=== PATIENT | male | born 1965 | race Caucasian/White ===

== ENCOUNTER 2020-04-28 13:10 | Outpatient (CLI) | payer MEDICAID, SELFPAY ==
--- NOTE | 2020-04-28 13:22 | XR_ITS ---
WS: [id number] LATERAL LUMBAR SPINE: 3 view. Lateral radiographs are performed in upright neutral, flexion and extension to the patient's toleranc e. HISTORY: Spinal stenosis. COMPARISON: 06/11/2018 Posterior lumbar alignment is normal. With flexion and extension no instability. Small osteophyte ext ends posteriorly from the inferior L5 vertebral body. Moderate disc space narrowing at L5-S1. No frac tures. XR/XR lumbar spine f/e only [id number] IMPRESSION: No lumbar spine instability. Moderate degenerative disc disease at L5-S1.
--- NOTE | 2020-04-28 13:23 | MR_ITS ---
WS: [id number] MRI LUMBAR SPINE NONCONTRAST HISTORY: SPINAL STENOSIS LUMBAR REGION WITH NEUROGENIC CLAUDICATION COMPARISON: 06/11/2018 TECHNIQUE: Sagittal and axial multisequence imaging is submitted. Increase in the cervical lordosis. Disc and osteophytes causing mild encroachment upon the cervical c ord at C5-6. There are small disc protrusions throughout the thoracic spine with no high-grade stenos is appreciated. Straightening of the normal lumbar lordosis. No acute fracture. Benign hemangioma at L4. Moderate disc space narrowing and desiccation at L4-5 and L5-S1. Conus terminates normally at L1-2 disc level. L1-L2: Central disc osteophyte encroaches upon the ventral thecal sac without causing significant jimmy nosis. Very mild bilateral foraminal narrowing. L2-L3: Mild osteophytic ridging and facet arthritis. Small annular fissure and extraforaminal disc on the LEFT is similar to the prior study. L3-L4: Mild annular disc bulging facet arthritis. Annular fissure in the LEFT foramen. No significant stenosis. L4-L5: Mild annular disc bulging with a shallow central disc protrusion. Mild facet and ligamentum fl avum hypertrophy. Broad-based disc bulging encroaches into the lateral recesses and subarticular fora men. Mild central stenosis with mild bilateral lateral recess and subarticular foraminal stenosis. Mi ld progression of disease since the prior study. L5-S1: Diffuse osteophytic ridging and annular disc bulging. Bilateral facet joint arthritis. Size of the broad-based disc bulging has actually improved since 2019. There is slightly less contact on the LEFT S1 nerve root. There is continued bilateral foraminal stenosis, LEFT is moderate and RIGHT is m ild. MR/MR lumbar spine wo con* [id number] IMPRESSION: 1. Moderate LEFT and mild RIGHT foraminal stenosis at L5-S1 due to disc osteop hyte disease. Broad-based disc protrusion abutting the LEFT S1 nerve root has i mproved since 2019. 2. Mild central with mild bilateral recess and subarticular foraminal stenosis at L4-5 with minimal progression since the prior study. Slightly greater encro achment upon the L5 nerve roots. 3. No fractures.
== END 2020-04-28 13:11 | disposition home or self-care (01) ==
PROVIDERS: PCP Nurse Practitioner Family; Visit Provider Anesthesiology Pain Medicine
DX: M48.062 Spinal stenosis, lumbar region with neurogenic claudication (principal); M48.07 Spinal stenosis, lumbosacral region
CPT/HCPCS: 72120; 72148

== ENCOUNTER 2021-03-07 12:32 | Emergency (ER) | payer MEDICAID, SELFPAY ==
[2021-03-07 13:31] VITALS: BP 185/99; PULSE 99; RESP 18; TEMP 37; O2SAT 96; BMI 38.3
--- NOTE | 2021-03-07 14:09 | XR_ITS ---
WS: [id number] Exam: XR chest 1V portable [id number] Date/Time of Exam: 03/07/2021 2:22 PM Reason For Exam: CP Comparison 05/24/2013. The lungs are clear and fully expanded. Normal cardiomediastinal silhouette. Chronic elevation of the right diaphragm. Regional bony structures are intact. XR/XR chest 1V portable [id number] IMPRESSION: 1. No acute cardiopulmonary finding.
--- NOTE | 2021-03-07 14:09 | ECG_ITS ---
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 Measurements Intervals Decker Rate: 95 P: 67 MI: 181 QRS: -47 QRSD: 134 T: 57 QT: 358 QTc: 452 Interpretive Statements SINUS RHYTHM RIGHT BUNDLE BRANCH BLOCK [120+ ms QRS DURATION, UPRIGHT V1, 40+ ms S IN I/aVL/V4/V5/V6] LEFT ANTERIOR FASCICULAR BLOCK [QRS AXIS <= -45, QR IN I, RS IN II] MODERATE VOLTAGE CRITERIA FOR LVH, CONSIDER NORMAL VARIANT [MEETS CRITERIA IN ONE OF: R(aVL), S(V1), R(V5), R(V5/V6)+S(V1)] POSSIBLE SEPTAL MYOCARDIAL INFARCTION , PROBABLY OLD [30 ms Q WAVE IN V1/V2] Compared to ECG 07/19/2017 13:07:35 Right bundle-branch block now present Left anterior fascicular block now present Left-axis deviation no longer present Myocardial infarct finding still present Electronically Signed On 03-07-2021 17:49:27 ROSE GRADING SUPERVISOR by Alejandrina Marie M.D. [id number]
--- NOTE | 2021-03-07 14:17 | ED_ITS ---
HPI - Chest Pain General: Chief Complaint: Chest Pain Stated Complaint: Chest Pain History of Present Illness: HPI narrative: Patient states that she has had chest pain last couple weeks. Was seen at the clinic and evaluated had an EKG done which shows new right bundle branch and left bundle branch block. Patient states she is having chest pain again he feels pressure in his arm squeezing and burning in center of chest. Has history of hypertension does have shortness of breath with exertion. Course Vital Signs: Vital signs: Vital Signs Temperature 98.6 F 03/07/21 13:31 Pulse Rate 99 03/07/21 13:31 Respiratory Rate 18 03/07/21 13:31 Blood Pressure 185/99 03/07/21 13:31 Pulse Oximetry 96 03/07/21 13:31 MDM - Chest Pain MDM Narrative: Medical decision making narrative: Patient left LVEF. I did review patient's labs that were back at 1605. Troponin is negative. White count slightly elevated. I called his phone number that he has listed and it shows patient has a voice mailbox is not set up yet. Lab Data: Labs: Lab Results 03/07/21 03/07/21 03/07/21 15:31 15:31 15:31 WBC 13.3 10^3/uL H 10 ^3/uL (4.0-10.0) RBC 5.74 10^6/uL H 10 ^6/uL (4.1-5.3) Hgb 17.6 g/dL H g/dL (11.7-16.6) Hct 51.7 % % (42.0-52.0) MCV 90.1 fl fl (80-94) MCH 30.7 pg pg (28.0-34.0) MCHC 34.0 g/dL g/dL (30.0-36.0) RDW 11.6 % L % (12.1-15.1) Plt Count 344 10^3/cmm 10^3 /cmm (130-400) MPV 10.2 fL fL (7.4-10.4) Neut % (Auto) 77.1 % % Lymph % (Auto) 15.0 % % Col[place] % (Auto) 6.7 % % Eos % (Auto) 0.2 % % Baso % (Auto) 0.5 % % Neut # (Auto) 10.25 10^3/uL H 1 0^3/uL (1.8-7.7) Lymph # (Auto) 2.0 10^3/uL 10^3/ uL (0.8-4.8) Colleton # (Auto) 0.9 10^3/uL 10^3/ uL (0.2-0.9) Eos # (Auto) 0.0 10^3/uL 10^3/ uL (0.0-0.8) Baso # (Auto) 0.1 10^3/uL 10^3/ uL (0.0-0.1) Nucleated RBC % (a uto) 0 % % Nucleated RBCs # 0.0 /100WBC /100W BC PT 13.40 SECONDS SEC ONDS (12.1-14.9) INR 0.99 (0.8-1.2) Sodium 137 mmol/L mmol/L (136-145) Potassium 4.3 mmol/L mmol/L (3.5-5.1) Chloride 100 mmol/L mmol/L (98-107) Carbon Dioxide 24 mmol/L mmol/L (22-29) Anion Gap 17.3 (5-19) BUN 10 mg/dL mg/dL (6-20) Creatinine 0.9 mg/dL mg/dL (0.7-1.2) GFR Calculation 88.3 mL/min L mL/ min (90-130) Glucose 117 mg/dL H mg/dL (65-115) Calculated Osmolal ity 284 mOsm/kg L mOs m/kg (285-295) Calcium 9.5 mg/dL mg/dL (8.5-10.5) Total Bilirubin 0.6 mg/dL mg/dL (0.15-1.2) AST 12 U/L U/L (0-40) ALT 17 U/L U/L (0-41) Alkaline Phosphata se 89 IU/L IU/L (40-130) Troponin T Baselin e Total Protein 7.2 g/dL g/dL (6.6-8.7) Albumin 4.8 g/dL g/dL (3.5-5.2) Globulin 2.4 g/dL g/dL (1.3-4.6) Lipase 11 U/L L U/L (13-60) 03/07/21 15:31 WBC RBC Hgb Hct MCV MCH MCHC RDW Plt Count MPV Neut % (Auto) Lymph % (Auto) Colleton % (Auto) Eos % (Auto) Baso % (Auto) Neut # (Auto) Lymph # (Auto) Colleton # (Auto) Eos # (Auto) Baso # (Auto) Nucleated RBC % (a uto) Nucleated RBCs # PT INR Sodium Potassium Chloride Carbon Dioxide Anion Gap BUN Creatinine GFR Calculation Glucose Calculated Osmolal ity Calcium Total Bilirubin AST ALT Alkaline Phosphata se Troponin T Baselin e 9 ng/L ng/L (0-15) Total Protein Albumin Globulin Lipase Coding Level of Care Code 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
[2021-03-07 15:50] LABS: Basophils # 0.1 10^3/uL (0.0-0.1); Basophils % 0.5 %; Eosinophils % 0.2 %; Hematocrit 51.7 % (42.0-52.0); Hemoglobin 17.6 g/dL (11.7-16.6); Mean Corpuscular Hemoglobin 30.7 pg (28.0-34.0); Mean Corpuscular Volume 90.1 fl (80-94); Mean Platelet Volume 10.2 fL (7.4-10.4); Monocytes # 0.9 10^3/uL (0.2-0.9); Monocytes % 6.7 %; Neutrophils # 10.25 10^3/uL (1.8-7.7); Neutrophils % 77.1 %; Nucleated Red Blood Cells % 0 %; Platelet Count 344 10^3/cmm (130-400); Red Blood Count 5.74 10^6/uL (4.1-5.3); Red Cell Distribution Width 11.6 % (12.1-15.1); White Blood Count 13.3 10^3/uL (4.0-10.0)
[2021-03-07 15:58] LABS: Troponin(5th) Baseline 9 ng/L (0-15)
[2021-03-07 15:59] LABS: Alanine Aminotransferase 17 U/L (0-41); Albumin Level 4.8 g/dL (3.5-5.2); Alkaline Phosphatase 89 IU/L (40-130); Anion Gap 17.3 (5-19); Aspartate Amino Transferase 12 U/L (0-40); Blood Urea Nitrogen 10 mg/dL (6-20); Calcium 9.5 mg/dL (8.5-10.5); Carbon Dioxide 24 mmol/L (22-29); Chloride 100 mmol/L (98-107); Globulin 2.4 g/dL (1.3-4.6); Glomerular Filtration Rate 88.3 mL/min (90-130); Glucose 117 mg/dL (65-115); Lipase 11 U/L (13-60); Osmolality Calculated 284 mOsm/kg (285-295); Potassium 4.3 mmol/L (3.5-5.1); Sodium 137 mmol/L (136-145); Total Bilirubin 0.6 mg/dL (0.15-1.2); Total Protein 7.2 g/dL (6.6-8.7)
[2021-03-07 16:03] LABS: INR 0.99 (0.8-1.2)
== END 2021-03-07 15:40 ==
PROVIDERS: Nurse Practitioner Family; Emergency Provider Family Medicine; PCP Nurse Practitioner Family
DX: R07.9 Chest pain, unspecified (principal); Z53.21 Procedure and treatment not carried out due to patient leaving prior to being seen by health care provider
CPT/HCPCS: 71045; 80053; 83690; 84484; 85025; 85610; 93005; 99282

== ENCOUNTER → 2021-05-08 11:01 | Outpatient (BNVA) | payer MEDICAID, SELFPAY | PROVIDERS: PCP Nurse Practitioner Family; Visit Provider Internal Medicine Cardiovascular Disease | DX: R00.2 Palpitations (principal); I10 Essential (primary) hypertension; I45.2 Bifascicular block; E11.9 Type 2 diabetes mellitus without complications; G62.9 Polyneuropathy, unspecified; M79.7 Fibromyalgia | CPT/HCPCS: 99214 ==

== ENCOUNTER 2021-05-30 08:03 | Outpatient (CLI) | payer MEDICAID, SELFPAY ==
[2021-05-30 08:51] VITALS: BMI 38.3
--- NOTE | 2021-05-30 08:54 | NMCV_ITS ---
NM tracie perf SPECT r/s* [id number] Sharath Reyna Age: 55 Gender: M : 1965 Exam Date: 05/30/2021 09:50 Ordering Phys: Severo Elena NP Technologist: FRANDY Link Exam Location: [facility] Indications: CHEST PAIN SHORTNESS OF BREATH STRESS TEST Please see separate stress [facility] for full findings IMAGE PROTOCOL Rest/Stress 1 Lexiscan Day Radiopharmaceutical Dose (mCi) Administration Site Administered by Rest: Tc-99m 10.2 IV FRANDY Mo Sestamibi Stress:Tc-99m 32.4 IV FRANDY Mo Sestamibi Rest: 30-May-2021 60 Discovery 630 Stress: 30-May-2021 30 Discovery 630 0.4mg Lexiscan. Images obtained in supine and prone position. SPECT RESULTS Technical Quality: Excellent Raw Data Analysis: Normal Image Corrections: No attenuation or motion correction applied Summed Stress Score: 5 Summed Rest Score: 8 Summed Difference Score: 1 PERFUSION FINDINGS There is a partially reversible perfusion defect in the inferior, apical inferior and apical lateral luke. This is consistent with prior infarct with francisco-infarct ischemia in these territories. FUNCTIONAL RESULTS (calculated via Gated SPECT) Stress Image LV EF (%): 65 Stress EDV (mL):93 TID: 0.93 Stress ESV (mL):33 FUNCTIONAL FINDINGS: There is normal left ventricular systolic function. IMPRESSIONS 1. Abnormal myocardial perfusion imaging with small to moderate sized prior infarct with francisco-infarct ischemia in inferior, apical inferior and apical lateral luke. 2. LV systolic function is normal Robinson Gotti MD (Electronically Signed) Final Date: 03 June 2021 11:40 S
--- NOTE | 2021-05-30 08:54 | ECG_ITS ---
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 Interpretive Statements NAME OF STUDY: LEXISCAN SESTAMIBI STRESS TEST INDICATION: [Atypical Chest Pain, ] Procedure: At the baseline, the blood pressure was 124/85 mmHg with a heart rate of 80 bpm. The electrocardiogram showed normal sinus rhythm,incomplete right bundle branch block, normal ST and T's. The Lexiscan was infused over a period of 20 seconds. A total of 0.4 mg of Lexiscan was infused. The stress phase was continued for a total of 5 minutes. Heart rate was at the end of stress phase was 86 bpm and a blood pressure of 110/85mmHg. The EKG at the peak infusion revealed since normal sinus rhythm with no significant ST-T wave changes. Sestamibi was injected 20 seconds after the Lexiscan infusion. Blood pressure at the end of recovery phase was 120/82 mmHg with a heart rate of 84 bpm. Conclusion: 1. Normal EKG response to Lexiscan infusion 2. No Lexiscan induced chest pain or cardiac arrhythmia. 3. Normal blood pressure and heart rate response. 4. Sestamibi/sestamibi perfusion scan pending; see separate report. Electronically Signed On 07-01-2021 21:20:34 CDT by Robinson Gotti M.D. [id number]
[2021-05-30] MEDS: regadenoson 0.4 Mg/5 ml Syringe IVP (10:50)
[2021-05-30 11:06] VITALS: BP 120/82; PULSE 85
== END 2021-05-30 08:04 | disposition home or self-care (01) ==
LOC: CDL 08:04
PROVIDERS: PCP Nurse Practitioner Family; Visit Provider Nurse Practitioner Family
DX: R07.89 Other chest pain (principal); R06.02 Shortness of breath
CPT/HCPCS: 78452; 93017; A9500; J2785

== ENCOUNTER → 2021-07-12 15:09 | Outpatient (BNVA) | payer MEDICAID, SELFPAY | PROVIDERS: PCP Nurse Practitioner Family; Visit Provider Nurse Practitioner Family | DX: R94.39 Abnormal result of other cardiovascular function study (principal) | CPT/HCPCS: 99213 ==

== ENCOUNTER → 2021-11-12 11:02 | Outpatient (BNVA) | payer MEDICAID, SELFPAY | PROVIDERS: PCP Family Medicine; Visit Provider Internal Medicine Cardiovascular Disease | DX: R07.9 Chest pain, unspecified (principal); R94.39 Abnormal result of other cardiovascular function study; I10 Essential (primary) hypertension; E11.40 Type 2 diabetes mellitus with diabetic neuropathy, unspecified; I45.2 Bifascicular block; R06.02 Shortness of breath | CPT/HCPCS: 99214 ==

== ENCOUNTER 2021-11-26 07:48 | Outpatient (CLI) | payer MEDICAID, SELFPAY ==
[2021-11-26] VITALS (17 sets, daily range): BP systolic 106–131; BP diastolic 68–94; PULSE 79–100; RESP 12–20; O2SAT 93–96; BMI 38.0
[2021-11-26 08:12] LABS: Basophils # 0.1 10^3/uL (0.0-0.1); Basophils % 0.7 %; Eosinophils # 0.4 10^3/uL (0.0-0.8); Hematocrit 49.5 % (42.0-52.0); Hemoglobin 16.5 g/dL (11.7-16.6); Lymphocytes % 23.7 %; Mean Corpuscular HGB Conc 33.3 g/dL (30.0-36.0); Mean Corpuscular Hemoglobin 31.4 pg (28.0-34.0); Mean Corpuscular Volume 94.1 fl (80-94); Monocytes # 1.2 10^3/uL (0.2-0.9); Monocytes % 9.2 %; Neutrophils # 7.81 10^3/uL (1.8-7.7); Neutrophils % 62.8 %; Nucleated Red Blood Cells % 0 %; Platelet Count 269 10^3/cmm (130-400); Red Blood Count 5.26 10^6/uL (4.1-5.3); Red Cell Distribution Width 12.2 % (12.1-15.1); White Blood Count 12.4 10^3/uL (4.0-10.0)
[2021-11-26] MEDS: diphenhydrAMINE 50 mg Capsule PO (08:20)
--- NOTE | 2021-11-26 08:30 | XACV_ITS ---
Ht: 180 cm Wt: 124 kg BSA: 2.54 m2 Gender: Male : 1965 Any Known Allergies: Other Exam Priority: Routine Procedure(s): Procedure Description: Diagnostic procedure Procedure Description: Coronary Angiography Diagnostic Cath Status: Elective Diagnostic Findings * No disease noted in the Left Main, Left Anterior Descending, Right, or Circumflex coronary arteries. * Coronary angiography shows right dominance. Conclusions 1. No disease noted in the Left Main, Left Anterior Descending, Right, or Circumflex coronary arteries. Recommendations * Continue current medical management and risk factor modification. Pressures Phase:Rest AO : 106 / 69 ( 82 ) @ 10:26:00 AM Clinical Evaluation EBL: 5mL-10mL Procedural Details Procedure Consent Obtained. Pre-Procedure Time Out. Identified patient by full name and date of as verbalized by the patient/guarantor. Does the consent match the physician's order: Yes. Accurate & Complete Informed Consent: Yes. Inpatient/Outpatient History & Physical on Chart: Yes. If H&P is completed, is and addenduem needed: No; If yes, is the addendum complete: N/A. Visualize and Verify Site with Patient/Guarantor: N/A. Relevant Radiology Images available: N/A. The risks, benefits, and alternatives of sedation and/or procedure were discussed by physician. The patient agrees to continue. Procedure started. [facility] Clinical Fraility Score: 3: Managing Well. 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 Chest Pain Symptom Assessment: Typical Angina Symptoms. Cardiovascular Instability: No. Correct patient, site and procedure confirmed by cath team. PERRLA. Strong, equal hand charter coach driver bilaterally. Lungs clear x 5 lobes. IV Site on Arrival: 20 gauge in the left anticubital. IV Fluids: 0.9% NaCl at KVO. 0 mL infused prior to cath laboratory technician. Pre Procedural Pulses: bilateral dorsalis pedis was 3+. Pre Procedural Pulses: bilateral posterior tibial was Doppled. Pre Procedural Pulses: right radial was 3+. Oxygen started at 2liters/min via nasal canula. right groin was prepped with chloroprep then draped in the usual sterile fashion. right radial was prepped with chloroprep then draped in the usual sterile fashion. Baseline sample Acquired. HR: 78 BPM. Equipment: 6F - Radial. Cardiac Cath Pack. ACIST Manifold Kit Model BT 2000. Heparinized Saline (2 units/mL), 1000 mL bag. Physician arrived. Physician scrubbed in. Immediate Pre-Procedure Time Out. Correct Patient: Yes; Correct Procedure: Yes; Correct Site: Yes; Correct Patient Position: Yes; Correct Supplies: Yes; Dried Flammable Prep: Yes; Blood Products Available: N/A;. Lidocaine 1% infiltrated to the right radial. Arterial access obtained. A 5 irish TIG catheter in over wire. Multiple views taken of left coronary artery. Catheter redirected to the RCA. Multiple views taken of right coronary artery. Catheter removed over the exchange wire. Physician scrubbed out. A TR Band was successful obtaining hemostatsis at the Right Radial artery insertion site. TR band placed. Hemostasis obtained. Post Procedure: Pulses reassessed and unchanged. PERRLA. Strong, equal hand charter coach driver bilaterally. No VTE prophylaxis required. Medication's Wasted: Lidocaine 1% = 2 mL. Medication's Wasted: Nitro = 49.8 mg. Medication's Wasted: Other = fentanyl 25 mcg. Total IV fluids: 40 mL. Contrast type used: Omnipaque 300 mgI/mL, 500 mL bottle. Post-op diagnosis: normal coronaries. Complications: none. Estimated blood loss: 5mL-10mL. Responsiveness - Normal response to verbal stimuli; alert and oriented, PERRLA. Airway - Unaffected, no intervention required; spontaneous ventilation. Circulation: W/N/L, pulses unchanged. Nausea/Vomiting: No. Procedure completed. Patient transferred by wheelchair to CPRU. Vital chart was stopped. Access Site Site: Right Radial artery Sheath Size: 6 Fr Hemostasis Method: TR Band Hemostasis Success: Successful Procedure Medications Start: 9:10 AM Stop: 9:10 AM Medication: Versed Amount: 1 mg Route: I.V. Start: 9:10 AM Stop: 9:10 AM Medication: Fentanyl Amount: 50 mcg Route: I.V. Start: 9:14 AM Stop: 9:14 AM Medication: Versed Amount: 1 mg Route: I.V. Start: 9:18 AM Stop: 9:18 AM Medication: Versed Amount: 1 mg Route: I.V. Start: 9:18 AM Stop: 9:18 AM Medication: Fentanyl Amount: 25 mcg Route: I.V. Start: 9:22 AM Stop: 9: AM Medication: Nitrogylcerin Amount: 200 mcg Route: I.A. Start: 9:22 AM Stop: 9:22 AM Medication: Versed Amount: 1 mg Route: I.V. Start: 9:25 AM Stop: 9:25 AM Medication: Heparin Amount: 5000 units Route: I.V. I, the attending physician, have reviewed and verified all procedure medications. Yes, all medications given per verbal order History/Risk Factors Hypertension: Yes Dyslipidemia: No Peripheral Arterial Disease (PAD): No Myocardial Infarction (CO): No Obesity: Yes Renal Disease: No Tobacco Use: Never Prior Interventions PCI: No CABG: No Valve Surgery: No Report Signatures Finalized by Yola Yanes MD on 11/28/2021 04:34 PM
[2021-11-26 08:31] LABS: Anion Gap 14.1 (5-19); Blood Urea Nitrogen 9 mg/dL (6-20); Carbon Dioxide 26 mmol/L (22-29); Chloride 101 mmol/L (98-107); Glomerular Filtration Rate 69.8 mL/min (90-130); Glucose 152 mg/dL (65-115); Osmolality Calculated 286 mOsm/kg (285-295); Potassium 4.1 mmol/L (3.5-5.1); Sodium 137 mmol/L (136-145)
--- NOTE | 2021-11-26 09:03 | W.PM.OPSUD ---
Surgery/Procedure H&P Update DATE OF PROCEDURE: November 26, 2021 DATE H&P PERFORMED: 11/12/21 H&P UPDATE INFORMATION: I have reviewed H&P completed within last 30 days, I have examined patient prior to procedure and No changes to prior documentation PREOP DIAGNOSIS: Abnormal stress test, chest pain PRIMARY INDICATION FOR PROCEDURE: Abnormal stress test, chest pain PLANNED PROCEDURE: Operation Date: 11/26/21 08:30 Proposed Procedures p [facility] w/wo 43929,R94.39,R07.9,R06.02,I45.2(Left) - Yola Yanes MD PATIENT REASSESSED PRIOR TO SEDATION, WITH NO CHANGE NOTED: Yes PHYSICAL EXAM: alert, oriented x 3, clear to auscultation bilaterally and regular rate & rhythm AIRWAY EVAL/ANESTHESIA PLAN: normal airway, ASA III, Monitored Anesthesia, Local Anesthesia, Risks, benefits & alternatives of sedation and/or procedure discussed and Patient agrees to continue as planned
--- NOTE | 2021-11-26 09:41 | USCV_ITS ---
Sharath Reyna Age: 56 Gender: M : 1965 Exam Date: 11/26/2021 10:21 Ordering Phys: Yola Yanes MD ([email or web address]) Technologist: Ariel Romero [place] [facility] [place]ication: Exertional shortness of breath, chest pain BP: 106 / 75 HR: 78 Rhythm: Sinus Technical Quality: Adequate MEASUREMENTS (Male / Female) Normal Values 2D ECHO LV Diastolic Diameter PLAX 3.9 cm 4.2 - 5.9 / 3.9 - 5.3 cm LV Systolic Diameter PLAX 2.7 cm IVS Diastolic Thickness 1.1 cm 0.6 - 1.0 / 0.6 - 0.9 cm IVS Systolic Thickness 1.4 cm LVPW Diastolic Thickness 1.0 cm 0.6 - 1.0 / 0.6 - 0.9 cm LVPW Systolic Thickness 1.4 cm LVOT Diameter 2.1 cm LV Ejection Fraction 2D Teich 58.1 % LV Ejection Fraction MOD 2C 61.4 % LV Ejection Fraction 2C AL 61.7 % LA Diameter 4.1 cm Aorta at Sinotubular Diameter 3.0 cm M-MODE Aortic Annulus Diameter 3.4 cm LA Ao Ratio MM 1.3 MV E Point Septal Separation 0.5 cm DOPPLER AV Peak Velocity 97.0 cm/s LVOT Peak Velocity 83.0 cm/s AV Area Cont Eq vti 2.3 cm squared AV Area Cont Eq pk 2.9 cm squared MV Area PHT 5.0 cm squared Mitral E to A Ratio 1.0 MV E' Velocity 34.0 cm/s Mitral E to MV E' Ratio 5.6 Mitral E to LV E' Lateral Ratio 4.6 Mitral E to LV E' Septal Ratio 7.1 TR Peak Velocity 115.3 cm/s TR Peak Gradient 5.3 mmHg TV Peak E Velocity 94.0 cm/s Right Atrial Pressure 3.0 mmHg Pulmonary Artery Systolic Pressu 8.3 mmHg PV Peak Velocity 70.0 cm/s RV Acceleration Time 0.1 s FINDINGS Left Ventricle Normal left ventricular size, systolic function and wall thickness, with no regional wall motion abnormalities. Left ventricular ejection fraction is estimated at 65 %. Normal diastolic function. Right Ventricle Normal right ventricular size and systolic function. Normal right ventricular systolic pressure. Right Atrium Normal right atrial size. Left Atrium Normal left atrial size. Mitral Valve Structurally normal mitral valve. No mitral valve stenosis. No mitral valve regurgitation. Aortic Valve Structurally normal trileaflet aortic valve. No aortic valve stenosis. No aortic valve regurgitation. Tricuspid Valve Structurally normal tricuspid valve. No significant tricuspid valve regurgitation. Pulmonic Valve Pulmonic valve not well visualized. No pulmonary valve stenosis. No pulmonary valve regurgitation. Pericardium No pericardial effusion. Aorta Normal size aortic root and proximal ascending aorta. IVC Inferior vena cava not visualized. CONCLUSIONS 1. This is a technically difficult study. Optison was used per protocol. 2. Normal left ventricular size, systolic function and wall thickness, with no regional wall motion abnormalities. Left ventricular ejection fraction is estimated at 65 %. Normal diastolic function. 3. No significant valvular abnormality. 4. No prior similar studies to compare. Yola Yanes MD (Electronically Signed) Final Date: 28 November 2021 16:30 S
--- NOTE | 2021-11-26 09:45 | PC.NURSE ---
Recovery Note Patient in CPRU 4 for post cath recovery. Pt placed on bedside cardiac rehab nurse. TR band in place, no signs of bleeding or hematoma. Pt alert and oriented, breathing even and unlabored on room air. Denies pain. family members at bedside. Pt educated on right arm restrictions and reportable signs and symptoms. Pt verbalized understanding.
--- NOTE | 2021-11-26 09:56 | PC.NURSE ---
IV fluids NS bag from photo lab manager infusing into recovery. NS infusing at 100ml/hr per physician orders until discharge.
[2021-11-26 10:17] LABS: Cholesterol 114 mg/dL (0-200); HDL Cholesterol 57 mg/dL (60-100); LDL Cholesterol Calculated 44 mg/dL (50-129); LDL HDL Ratio 0.77 RATIO (0.00-3.22); NT Pro B Type Natriuretic Pept 39 pg/mL (0-125); Triglycerides 67 mg/dL (0-150)
--- NOTE | 2021-11-26 10:23 | PC.NURSE ---
Ultrasound in room performing echo at this time.
[2021-11-26] MEDS: perflutren protein-a microsphr 0.22 mg/mL SDV 3 mL IV (10:48)
--- NOTE | 2021-11-26 12:32 | PC.NURSE ---
TR Band 2ml air removed at 1050 1ml air removed at 1100 1ml air removed at 1105 1ml air removed at 1115 1ml air removed at 1125 1ml air removed at 1130 2ml air removed at 1135 2ml air removed at 1145 2ml air removed at 1155 1ml air removed at 1205 At 1205 TR band deflated. Left in place for 15 minutes to monitor for bleeding. Site asymptomatic. TR band removed and applied bandaid to right wrist.
== END 2021-11-26 13:42 | disposition home or self-care (01) ==
PROVIDERS: PCP Family Medicine; Visit Provider Internal Medicine Cardiovascular Disease
DX: R07.9 Chest pain, unspecified (principal); R94.39 Abnormal result of other cardiovascular function study; I10 Essential (primary) hypertension; E66.9 Obesity, unspecified; Z68.38 Body mass index [BMI] 38.0-38.9, adult; E03.9 Hypothyroidism, unspecified; M19.90 Unspecified osteoarthritis, unspecified site; I45.2 Bifascicular block; Z86.19 Personal history of other infectious and parasitic diseases; F41.9 Anxiety disorder, unspecified; F32.A Depression, unspecified; E11.40 Type 2 diabetes mellitus with diabetic neuropathy, unspecified; Z82.49 Family history of ischemic heart disease and other diseases of the circulatory system; Z79.82 Long term (current) use of aspirin; M79.7 Fibromyalgia
CPT/HCPCS: 36415; 80048; 80061; 83880; 85025; 93454; 96360; 96361; 99152; 99153; C1769; C1887; C1894; C8929; J1644; J2250; J3010; J3490; J7030; Q0163; Q9967

== ENCOUNTER → 2021-12-12 09:59 | Outpatient (BNVA) | payer MEDICAID, SELFPAY | PROVIDERS: PCP Family Medicine; Visit Provider Nurse Practitioner Family | DX: R07.9 Chest pain, unspecified (principal); I10 Essential (primary) hypertension | CPT/HCPCS: 80048; 99213; 99214 ==

== ENCOUNTER 2022-03-05 11:00 | Outpatient (CLI) | payer MEDICAID, SELFPAY | END 2022-03-05 11:01 | disposition home or self-care (01) | LOC: RT 11:01 | PROVIDERS: PCP Family Medicine; Visit Provider Family Medicine | DX: R06.09 Other forms of dyspnea (principal) | CPT/HCPCS: 94060; J7613 ==

== ENCOUNTER → 2022-04-02 14:36 | Outpatient (BNVA) | payer MEDICAID, SELFPAY | PROVIDERS: PCP Family Medicine; Visit Provider Surgery | DX: R19.7 Diarrhea, unspecified (principal); R10.9 Unspecified abdominal pain | CPT/HCPCS: 99203 ==

== ENCOUNTER 2022-04-24 06:12 | Day surgery (SDC) | payer MEDICAID, SELFPAY ==
[2022-04-24] VITALS (8 sets, daily range): BP systolic 95–174; BP diastolic 56–98; PULSE 77–112; RESP 16–18; TEMP 36.1–36.6; O2SAT 91–97; BMI 41.1
[2022-04-24] MEDS: sodium chloride 0.9% 1,000 ML 30 ML IV ×2 (06:48→11:26)
--- NOTE | 2022-04-24 07:14 | ANES.PREANE2 ---
Pre-Anesthetic Assessment Height/Weight: Height 1.8 m Weight 133.81 kg Temp Pulse Resp BP Pulse Ox O2 Del Method 97.9 F 112 H 18 174/98 94 04/24/22 06:37 04/24/22 06:37 04/24/22 06:37 04/24/22 06:37 04/24/22 06:37 04/24/22 06:37 Preop Diagnosis: Abnormal stress test, chest pain Operation Date: 04/24/22 11:00 Proposed Procedures p Colonoscopy 81882,R19.7(Not Applicable) - Moy Morales DO Familial anesthetic complications: None Was Beta Ila taken within 24 hours: Yes Was Clonidine taken within 24 hours: N/A Last intake: Intake Last Liquid Date 04/23/22 Last Liquid Time 22:00 Last Solid Date 04/22/22 Last Solid Time 18:00 Social No alcohol and No tobacco Exam alert, oriented x 3, clear to auscultation bilaterally and regular rate & rhythm Airway Mallampati: Class III Dentition: chipped CV/HEM Hypertension Metabolic Diabetes Mellitus, Hyperlipidemia, Morbid Obesity and Thyroid Disease Anesthetic Plan ASA status: 3 Anesthesia: MAC Risk of > 500 ml blood loss (7ml/kg in children): No Medications/Allergies Home Medications Medication Instructions Recorded Confirmed Last Taken Type gabapentin 300 mg capsule 300 mg PO TID 03/08/21 04/24/22 04/23/22 History metoprolol succinate 100 mg 100 mg PO DAILY #90 tabs 05/08/21 04/24/22 04/24/22 Rx tablet,extended release 24 hr aspirin 81 mg tablet,delayed 81 mg PO DAILY #94 tabs 11/12/21 04/24/22 04/22/22 Rx release (Adult Low Dose Aspirin) lisinopril 10 mg tablet 10 mg PO DAILY #90 tabs 11/12/21 04/24/22 04/24/22 Rx nitroglycerin 0.4 mg sublingual 0.4 mg sublingual Q5M PRN chest 11/12/21 04/24/22 Unknown Rx tablet (Nitrostat) pain #25 tabs atorvastatin 20 mg tablet 10 mg PO DAILY #90 tabs 11/26/21 04/24/22 04/23/22 Rx Allergies Allergy/AdvReac Type Severity Reaction Status Date / Time acetaminophen Allergy rash Verified 04/24/22 06:36 [From Darvocet-N] niacin Allergy ALGY-Hives Verified 04/24/22 06:36 oxycodone [From Percocet] Allergy ALGY-Rash Verified 04/24/22 06:36 propoxyphene Allergy rash Verified 04/24/22 06:36 [From Darvocet-N] Current Medications Generic Name Dose Route Start Last Admin Trade Name Freq PRN Reason Stop Dose Admin Sodium Chloride 1,000 mls @ 30 mls/hr 04/24/22 06:45 04/24/22 06:48 Sodium Chloride 0.9% IV 04/25/22 06:44 30 mls/hr .Q24H MICHAEL Administration PFSH Anesthesia Medical History Bifascicular block Diabetes mellitus Fibromyalgia HTN (hypertension) Hx of fracture of wrist right Neuropathy Spinal stenosis Surgical History Hx of appendectomy Hx of colonoscopy Hx of tonsillectomy Social History Smoking and tobacco status: never smoked Data Anesthesia Cardiac Studies: Echocardiogram 11/26/21 Sestamibi Stress Test (Cardiology) 05/30/21 Holter Monitor 03/08/21
--- NOTE | 2022-04-24 10:12 | W.PM.OPSUD ---
Surgery/Procedure H&P Update DATE OF PROCEDURE: April 24, 2022 DATE H&P PERFORMED: 04/02/22 H&P UPDATE INFORMATION: I have reviewed H&P completed within last 30 days, I have examined patient prior to procedure and No changes to prior documentation PREOP DIAGNOSIS: Abnormal stress test, chest pain PLANNED PROCEDURE: Operation Date: 04/24/22 11:00 Proposed Procedures p Colonoscopy 93893,R19.7(Not Applicable) - Moy Morales DO
[2022-04-24] MEDS: ipratropium-albuterol 3 mL Neb INHALATION (12:36)
--- NOTE | 2022-04-24 12:40 | XR_ITS ---
WS: [id number] Portable AP upright chest, 04/24/2022 Clinical Data: post potential aspiration Comparison: Portable chest, 03/07/2021 Findings: No nodules, masses or effusions are seen. The heart is normal. The pulmonary vascularity is not increased. No pneumonia or pneumothorax is seen. There is linear atelectasis in the left midlung . The right diaphragm is elevated. XR/XR chest 1V portable [id number] Impression: Minimal left lung linear atelectasis.
--- NOTE | 2022-04-24 13:26 | SUR.PHASEII ---
care of patient assumed at this time. pt resting in bed, visitor at bedside. no distress. o2 removed at this time. spo2 98% on ra. will continue to monitor.
--- NOTE | 2022-04-24 14:31 | ANE.PACU2 ---
Inpatient post-anesthesia follow up: Airway intact: Yes Vital signs: Temperature 97 F Pulse Rate 78 Respiratory Rate 16 Blood Pressure 102/62 Pulse Oximetry 96 Oxygen Delivery Me thod Room Air Oxygen Flow Rate 3 Fraction of Inspir ed Oxygen Hydration adequate: Yes Nausea and vomiting: No Pain level: 1 Mental status: Baseline Additional Comments: Patient aspirated bile/stomach acid during procedure, no food particulates or fecal material was present in vomitus. For a short duration after the procedure the patient did a lot of coughing up yellow bile-tinged saliva and a baseline cxr was obtained, which ultimately showed marty e linear atelectasis. Patient was encouraged to cough and take deep breaths. Postoperatively he was weaned off of oxygen and maintained his sats at > 94% spo2 on room air for 30 minutes. He was informed that if he develops any increased shortness of breath, malaise, or fever to return to ER or visit urgent care as it is possible that he will have developed interval aspiration pneumonia and this will need antibiotics.
== END 2022-04-24 14:10 | disposition home or self-care (01) ==
PROVIDERS: PCP Family Medicine; Visit Provider Surgery
PROC: 0DJD8ZZ Inspection of Lower Intestinal Tract, Via Natural or Artificial Opening Endoscopic (ICD-10-PCS; CPT 45378; principal; 2022-04-24 11:00)
DX: Z12.11 Encounter for screening for malignant neoplasm of colon (principal); R19.5 Other fecal abnormalities; K52.9 Noninfective gastroenteritis and colitis, unspecified; K57.30 Diverticulosis of large intestine without perforation or abscess without bleeding; R07.9 Chest pain, unspecified; R94.31 Abnormal electrocardiogram [ECG] [EKG]; I10 Essential (primary) hypertension; E11.9 Type 2 diabetes mellitus without complications; E78.5 Hyperlipidemia, unspecified; E66.01 Morbid (severe) obesity due to excess calories; Z68.41 Body mass index [BMI] 40.0-44.9, adult; Z79.82 Long term (current) use of aspirin
CPT/HCPCS: 45380; 71045; 82274; 83630; 87493; 87506; 88305; 94640; J2250; J2405; J7030

== ENCOUNTER → 2022-04-25 15:55 | Outpatient (BNVA) | payer MEDICAID, SELFPAY | PROVIDERS: PCP Family Medicine; Visit Provider Nurse Practitioner | DX: R05.9 Cough, unspecified (principal) | CPT/HCPCS: 71046 ==

== ENCOUNTER 2022-06-26 13:47 | Outpatient (CLI) | payer MEDICAID, SELFPAY ==
[2022-06-26 14:02] VITALS: PULSE 79; RESP 18; O2SAT 97
[2022-06-26] MEDS: albuterol 2.5 mg/3 mL Neb INHALATION (14:02)
[2022-06-26 14:07] VITALS: PULSE 84
== END 2022-06-26 13:48 | disposition home or self-care (01) ==
LOC: RT 13:48
PROVIDERS: PCP Family Medicine; Visit Provider Family Medicine
DX: J98.4 Other disorders of lung (principal)
CPT/HCPCS: 94060; 94729; J7613

== ENCOUNTER 2022-08-06 11:13 | Outpatient (CLI) | payer MEDICAID, SELFPAY ==
--- NOTE | 2022-08-06 11:24 | CT_ITS ---
WS: [id number] HIGH-RESOLUTION CT CHEST TECHNIQUE: High-resolution Noncontrast CT of the chest with coronal and sagittal reformatted images. Inspiratory expiratory imaging CLINICAL INFORMATION: INTERSTITIAL LUNG DISEASE, RESTRICTIVE LUNG DISEASE COMPARISON: CTa 012 DLP: 1999.[address] scans at [facility] use at least one of these dose optimization techniques: automated e xposure control; mA and/or kV adjustment per patient size (includes targeted exams where dose is matc hed to clinical indication); or iterative reconstruction. FINDINGS: Normal caliber thoracic aorta. Coronary calcification. No mediastinal or hilar lymphadenopathy. No ax illary lymphadenopathy.Adrenal glands are normal. Small esophageal hiatal hernia. Slight RIGHT basilar atelectasis with parenchymal scarring similar to 2012. Calcified granuloma RIGHT lower lobe adjacent to the diaphragm. Chronic elevation RIGHT hemidiaphragm. On the high-resolution images no evidence of significant traction bronchiectasis or subpleural honeyc ombing. No significant air trapping on the expiratory imaging. No other suspicious findings. CT/CT chest wo con [id number] IMPRESSION: 1. No evidence of subpleural honeycombing or interstitial fibrosis. 2. Chronic appearing RIGHT basilar parenchymal scarring similar to 2012. Chron ic elevation RIGHT hemidiaphragm. 3. No acute pulmonary infiltrates. No focal pneumonia or pleural fluid. 4. No mediastinal or hilar lymphadenopathy. 5. Small esophageal hiatal hernia.
== END 2022-08-06 11:14 | disposition home or self-care (01) ==
LOC: RAD 11:14
PROVIDERS: PCP Family Medicine; Visit Provider Family Medicine
DX: J84.9 Interstitial pulmonary disease, unspecified (principal); J98.4 Other disorders of lung; K44.9 Diaphragmatic hernia without obstruction or gangrene
CPT/HCPCS: 71250

== ENCOUNTER 2022-08-14 14:57 | Emergency (ER) | payer MEDICAID, SELFPAY ==
[2022-08-14] VITALS (9 sets, daily range): BP systolic 101–155; BP diastolic 64–114; PULSE 60–83; RESP 16–24; TEMP 36.6; O2SAT 96–99
--- NOTE | 2022-08-14 15:00 | XR_ITS ---
WS: [id number] Exam: XR chest 1V portable [id number] Date/Time of Exam: 08/14/2022 3:11 PM Reason For Exam: chest pain Comparison 04/25/2022. The lungs are clear and fully expanded. Chronic elevation the right diaphragm. Normal cardiomediastin al silhouette. Bony structures are intact. XR/XR chest 1V portable [id number] IMPRESSION: 1. No acute cardiopulmonary finding.
--- NOTE | 2022-08-14 15:00 | ECG_ITS ---
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 Measurements Intervals [place] Rate: 74 P: 74 ID: [id number] QRS: -41 QRSD: 151 T: 18 QT: 390 QTc: 435 Interpretive Statements SINUS RHYTHM LEFT AXIS DEVIATION [QRS AXIS < -30] INTRAVENTRICULAR CONDUCTION DELAY [130+ ms QRS DURATION] Compared to ECG 03/07/2021 13:41:45 Left-axis deviation now present Intraventricular conduction delay now present Right bundle-branch block no longer present Left anterior fascicular block no longer present Myocardial infarct finding no longer present Electronically Signed On 08-15-2022 10:09:42 CDT by Aleajndrina Marie M.D. [id number]
--- NOTE | 2022-08-14 15:19 | ED_ITS ---
Documented by User: PURNIMA Stovall 08/14/22 16:15 HPI - Chest Pain General: Chief Complaint: Chest Pain Stated Complaint: Chest Pain SOB, weakness, head pressure Time Seen by Provider: 08/14/22 14:59 Source: patient Mode of arrival: ambulatory Limitations: no limitations History of Present Illness: Patient is a 57-year-old male with a history of HTN, diabetes, hyperthyroidism, hepatitis C, fibromyalgia here for complaints of chest pain that began around 3 AM this morning and awoke him from sleep. He states he has a tight squeezing sensation in the left side of his chest and then will have intermittent brief exacerbations of sharp shooting pains. Patient's last stress test showing abnormal myocardial perfusion imaging with small to moderate-sized prior infarct with francisco-infarct ischemia in inferior/apical inferior/apical lateral luke (done 11/2021). Echo performed same time showing EF of 65%. He underwent cardiac angio with results: Conclusions ? 1. No disease noted in the Left Main, Left Anterior Descending, Right, or Circumflex coronary arteries. MD complaint: chest pain and chest heaviness Pertinent past history: coronary artery disease Onset (ago): hour(s) Timing of current episode: constant Prior episodes: Yes Onset: during rest Pain location: substernal and left chest Severity: moderate Quality: tightness and other (squeezing) Relieving factors: nothing Exacerbating factors: nothing Associated symptoms: Reports dyspnea (during episodes of sharp pain); Deny abdominal pain, fever(s), nausea, palpitations, syncope or vomiting Treatment prior to arrival: aspirin Risk Factors: Coronary artery disease risk factors: diabetes and hypertension Thoracic aortic dissection risk factors: none Review of Systems Const: Denies: fever(s), chills, body aches, fatigue or malaise Eyes: Denies: change in vision, blurry vision, floaters or seeing flashes Card: Reports: chest pain; Denies: palpitations, irregular heart rhythm, edema, swelling of feet/ankles, lightheadedness, syncope, pre-syncope, dyspnea on exertion, orthopnea, leg pain with exertion or acrocyanosis Resp: Reports: dyspnea (during episodes of sharp pain); Denies: productive cough, non-productive cough, wheezing, hemoptysis or chest congestion GI: Denies: abdominal pain, nausea, vomiting or diarrhea Musc: Denies: neck pain, back pain, extremity pain, extremity swelling, joint pain or joint swelling Skin/Breast: Denies: rash Neuro: Denies: headache(s), numbness in extremities, weakness in extremities, sensory changes or dizziness PFSH ED PFSH: Medical History Bifascicular block Diabetes mellitus Fibromyalgia HTN (hypertension) Hx of fracture of wrist right Neuropathy Spinal stenosis Surgical History Hx of appendectomy Hx of colonoscopy Hx of tonsillectomy Social History Smoking and tobacco status: never smoked Physical Exam Const: COMMON NORMALS: no acute distress, patient oriented x3, no limitations, alert and well nourished GENERAL APPEARANCE: cooperative NUTRITIONAL APPEARANCE: overweight ORIENTATION/CONSCIOUSNESS: Yes awake, Yes oriented to person, Yes oriented to place and Yes oriented to time Neck/C-Spine: COMMON NORMALS: no JVD Chest: COMMONS NORMALS: normal inspection of the chest and normal palpation of entire chest wall Resp: COMMON NORMALS: normal respiratory effort and clear to auscultation bi laterally AUSCULTATION: clear to auscultation bilaterally Cardio: COMMON NORMALS: no JVD, regular rate and regular rhythm RATE: regular rate RHYTHM: regular rhythm GI: COMMON NORMALS: Normal to inspection, nondistended, normoactive bowel sounds present, Soft to palpation and non-tender PALPATION: Yes Soft to palpation Extremity: COMMON NORMALS: capillary refill normal, no joint enlargement, no clubbing, cyanosis or edema, no calf tenderness and no pedal edema GENERAL: Yes normal exam except as noted Neuro: SHARON COMA SCALE: document GCS findings [place] coma scale eye opening: Spontaneous [place] coma scale verbal response: Orientated [place] coma scale motor response: Obey commands [place] coma scale total score: 15 COMMON NORMALS: patient oriented x3 SENSORIUM/ORIENTATION: Yes alert, Yes oriented to person, Yes oriented to place and Yes oriented to time Skin: COMMON NORMALS: no rashes or lesions noted GENERAL SKIN EXAM: no rashes or lesions noted Course Vital Signs: Vital signs: Vital Signs Temperature 97.9 F 08/14/22 14:59 Pulse Rate 70 08/14/22 18:33 Respiratory Rate 16 08/14/22 18:33 Blood Pressure 101/64 08/14/22 18:33 Pulse Oximetry 96 08/14/22 16:56 Oxygen Delivery Me thod Room Air 08/14/22 18:33 MDM - Chest Pain Lab Data 08/14/22 15:15 08/14/22 15:15 Radiology Impressions Chest X-Ray 08/14/22 15:00 IMPRESSION: 1. No acute cardiopulmonary finding. Laboratory Results WBC 12.7 10^3/uL (4.0-10.0) H 08/14/22 15:15 RBC 5.40 10^6/uL (4.1-5.3) H 08/14/22 15:15 Hgb 17.1 g/dL (11.7-16.6) H 08/14/22 15:15 Hct 49.5 % (42.0-52.0) 08/14/22 15:15 MCV 91.7 fl (80-94) 08/14/22 15:15 MCH 31.7 pg (28.0-34.0) 08/14/22 15:15 MCHC 34.5 g/dL (30.0-36.0) 08/14/22 15:15 RDW 11.9 % (12.1-15.1) L 08/14/22 15:15 Plt Count 338 10^3/cmm (130-400) 08/14/22 15:15 MPV 10.1 fL (7.4-10.4) 08/14/22 15:15 Neut % (Auto) 75.3 % 08/14/22 15:15 Lymph % (Auto) 13.9 % 08/14/22 15:15 [place] % (Auto) 9.1 % 08/14/22 15:15 Eos % (Auto) 0.6 % 08/14/22 15:15 Baso % (Auto) 0.6 % 08/14/22 15:15 Neut # (Auto) 9.56 10^3/uL (1.8-7.7) H 08/14/22 15:15 Lymph # (Auto) 1.8 10^3/uL (0.8-4.8) 08/14/22 15:15 [place] # (Auto) 1.2 10^3/uL (0.2-0.9) H 08/14/22 15:15 Eos # (Auto) 0.1 10^3/uL (0.0-0.8) 08/14/22 15:15 Baso # (Auto) 0.1 10^3/uL (0.0-0.1) 08/14/22 15:15 Nucleated RBC % (auto) 0 % 08/14/22 15:15 Nucleated RBCs # 0.0 /100WBC 08/14/22 15:15 Sodium 133 mmol/L (136-145) L 08/14/22 15:15 Potassium 4.6 mmol/L (3.5-5.1) 08/14/22 15:15 Chloride 98 mmol/L (98-107) 08/14/22 15:15 Carbon Dioxide 24 mmol/L (22-29) 08/14/22 15:15 Anion Gap 15.6 (5-19) 08/14/22 15:15 BUN 8 mg/dL (6-20) 08/14/22 15:15 Creatinine 1.2 mg/dL (0.7-1.2) 08/14/22 15:15 GFR Calculation 62.9 mL/min (90-130) L 08/14/22 15:15 Glucose 212 mg/dL (65-115) H 08/14/22 15:15 Calculated Osmolality 281 mOsm/kg (285-295) L 08/14/22 15:15 Calcium 10.0 mg/dL (8.5-10.5) 08/14/22 15:15 Total Bilirubin 0.8 mg/dL (0.15-1.2) 08/14/22 15:15 AST 22 U/L (0-40) 08/14/22 15:15 ALT 41 U/L (0-41) 08/14/22 15:15 Alkaline Phosphatase 81 U/L (40-130) 08/14/22 15:15 Troponin T Baseline 8 ng/L (0-15) 08/14/22 15:15 Troponin T 120 Minute 9.29 ng/L (0-15) 08/14/22 17:17 Delta Troponin T 1.29 ABS# (0-10) 08/14/22 17:17 Total Protein 7.3 g/dL (6.6-8.7) 08/14/22 15:15 Albumin 4.8 g/dL (3.5-5.2) 08/14/22 15:15 Globulin 2.5 g/dL (1.3-4.6) 08/14/22 15:15 Discharge Plan Discharge Patient Disposition: Home Clinical Impression: Chest pain Qualifiers: Chest pain type: unspecified Qualified Code(s): R07.9 - Chest pain, unspecified Condition: Stable Prescriptions: No Action gabapentin 300 mg capsule 900 mg PO BEDTIME nitroglycerin [Nitrostat] 0.4 mg tablet, sublingual 0.4 mg sublingual Q5M PRN (Reason: chest pain) Qty: 25 1RF Rx Instructions: do not exceed 3 doses per episode albuterol sulfate [Ventolin HFA] 90 mcg/actuation HFA aerosol inhaler 2 inh inhalation Q4H PRN (Reason: shortness of breath or wheezing) Qty: 6.7 0RF atorvastatin 20 mg tablet 20 mg PO BEDTIME metoprolol succinate 100 mg tablet extended release 24 hr 100 mg PO QAM Adult Low Dose Aspirin 81 mg tablet,delayed release (DR/EC) 81 mg PO QAM lisinopril 10 mg tablet 10 mg PO QAM Discharge Orders: Discharge ED (Routine); Ordered 08/14/22 Ordered By: Sharath Marks Referrals: Demetri Merritt MD [Primary Care Provider] - Discharge Diet: Regular Discharge Activity: Increase activity as tolerated Patient Instructions: Chest Pain (DC) Activity Restrictions/Additional Instructions: Follow-up with your PCP or piece goods clerk within the next week for reevaluation. Continue taking all home medications as previously prescribed. Return to the ER or your medical provider if condition worsens. Please read and understand discharge instructions. Thank you for choosing [facility] for your healthcare needs today. Please realize this is an emergency room and that we are providing you with a medical screening exam and this may not be complete and all inclusive of all the testing and or work up that you may need to determine your ailment or severity of your illness. It is very important that you follow up as instructed or that you return to the Emergency Department should you have concerns or if your condition changes or worsens in any way. Sign Out Sign Out Data: Patient Sign Out occurred on 08/14/22 at 17:10. Patient's care was discussed, and care was transferred from to PURNIMA Alberto. Coding Level of Care Code ED Lead Pourer for Chg Fwd Documented by User: PURNIMA Alberto 08/14/22 19:40 HPI - Chest Pain General: Chief Complaint: Chest Pain Stated Complaint: Chest Pain SOB, weakness, head pressure Time Seen by Provider: 08/14/22 14:59 PFSH ED PFSH: Medical History Bifascicular block Diabetes mellitus Fibromyalgia HTN (hypertension) Hx of fracture of wrist right Neuropathy Spinal stenosis Surgical History Hx of appendectomy Hx of colonoscopy Hx of tonsillectomy Social History Smoking and tobacco status: never smoked Physical Exam Neuro: SHARON COMA SCALE: document GCS findings [place] coma scale total score: 15 Course Vital Signs: Vital signs: Vital Signs Temperature 97.9 F 08/14/22 14:59 Pulse Rate 70 08/14/22 18:33 Respiratory Rate 16 08/14/22 18:33 Blood Pressure 101/64 08/14/22 18:33 Pulse Oximetry 96 08/14/22 16:56 Oxygen Delivery Me thod Room Air 08/14/22 18:33 MDM - Chest Pain Medical Decision Making Patient is a 57-year-old male with a history of HTN, diabetes, hyperthyroidism, hepatitis C, fibromyalgia here for complaints of chest pain that began around 3 AM this morning and awoke him from sleep. He states he has a tight squeezing sensation in the left side of his chest and then will have intermittent brief exacerbations of sharp shooting pains. Patient's last stress test showing abnormal myocardial perfusion imaging with small to moderate-sized prior infarct with francisco-infarct ischemia in inferior/apical inferior/apical lateral luke (done 11/2021). Echo performed same time showing EF of 65%. He underwent cardiac angio with results: Conclusions ? 1. No disease noted in the Left Main, Left Anterior Descending, Right, or Circumflex coronary arteries. Vitals are stable. I took over patient care at 5 PM from Samantha Weller the physician sales support assistant and I agree with her above history and exam. Baseline and 2-hour EKGs today showed no acute findings or any signs of ST segment elevation or depression seen. CBC and CMP were unremarkable and first troponin was 8 and when I took over case patient's 2-hour Trope was pending. 2-hour troponin came back at 9.29 which gives us a delta of 1.29. Patient has a heart score of 4 and I went and discussed patient case with Dr. Marie and he reviewed the EKGs. He agreed patient was stable for discharge home and he can follow-up with his PCP or piece goods clerk within the next week. Return to ED precautions given. Patient understood and agreed with plan Lab Data I reviewed the patient's lab results. 08/14/22 15:15 08/14/22 15:15 Radiology Impressions Chest X-Ray 08/14/22 15:00 IMPRESSION: 1. No acute cardiopulmonary finding. Laboratory Results WBC 12.7 10^3/uL (4.0-10.0) H 08/14/22 15:15 RBC 5.40 10^6/uL (4.1-5.3) H 08/14/22 15:15 Hgb 17.1 g/dL (11.7-16.6) H 08/14/22 15:15 Hct 49.5 % (42.0-52.0) 08/14/22 15:15 MCV 91.7 fl (80-94) 08/14/22 15:15 MCH 31.7 pg (28.0-34.0) 08/14/22 15:15 MCHC 34.5 g/dL (30.0-36.0) 08/14/22 15:15 RDW 11.9 % (12.1-15.1) L 08/14/22 15:15 Plt Count 338 10^3/cmm (130-400) 08/14/22 15:15 MPV 10.1 fL (7.4-10.4) 08/14/22 15:15 Neut % (Auto) 75.3 % 08/14/22 15:15 Lymph % (Auto) 13.9 % 08/14/22 15:15 [place] % (Auto) 9.1 % 08/14/22 15:15 Eos % (Auto) 0.6 % 08/14/22 15:15 Baso % (Auto) 0.6 % 08/14/22 15:15 Neut # (Auto) 9.56 10^3/uL (1.8-7.7) H 08/14/22 15:15 Lymph # (Auto) 1.8 10^3/uL (0.8-4.8) 08/14/22 15:15 [place] # (Auto) 1.2 10^3/uL (0.2-0.9) H 08/14/22 15:15 Eos # (Auto) 0.1 10^3/uL (0.0-0.8) 08/14/22 15:15 Baso # (Auto) 0.1 10^3/uL (0.0-0.1) 08/14/22 15:15 Nucleated RBC % (auto) 0 % 08/14/22 15:15 Nucleated RBCs # 0.0 /100WBC 08/14/22 15:15 Sodium 133 mmol/L (136-145) L 08/14/22 15:15 Potassium 4.6 mmol/L (3.5-5.1) 08/14/22 15:15 Chloride 98 mmol/L (98-107) 08/14/22 15:15 Carbon Dioxide 24 mmol/L (22-29) 08/14/22 15:15 Anion Gap 15.6 (5-19) 08/14/22 15:15 BUN 8 mg/dL (6-20) 08/14/22 15:15 Creatinine 1.2 mg/dL (0.7-1.2) 08/14/22 15:15 GFR Calculation 62.9 mL/min (90-130) L 08/14/22 15:15 Glucose 212 mg/dL (65-115) H 08/14/22 15:15 Calculated Osmolality 281 mOsm/kg (285-295) L 08/14/22 15:15 Calcium 10.0 mg/dL (8.5-10.5) 08/14/22 15:15 Total Bilirubin 0.8 mg/dL (0.15-1.2) 08/14/22 15:15 AST 22 U/L (0-40) 08/14/22 15:15 ALT 41 U/L (0-41) 08/14/22 15:15 Alkaline Phosphatase 81 U/L (40-130) 08/14/22 15:15 Troponin T Baseline 8 ng/L (0-15) 08/14/22 15:15 Troponin T 120 Minute 9.29 ng/L (0-15) 08/14/22 17:17 Delta Troponin T 1.29 ABS# (0-10) 08/14/22 17:17 Total Protein 7.3 g/dL (6.6-8.7) 08/14/22 15:15 Albumin 4.8 g/dL (3.5-5.2) 08/14/22 15:15 Globulin 2.5 g/dL (1.3-4.6) 08/14/22 15:15 Discharge Plan Discharge Patient Disposition: Home Clinical Impression: Chest pain Qualifiers: Chest pain type: unspecified Qualified Code(s): R07.9 - Chest pain, unspecified Condition: Stable Prescriptions: No Action gabapentin 300 mg capsule 900 mg PO BEDTIME nitroglycerin [Nitrostat] 0.4 mg tablet, sublingual 0.4 mg sublingual Q5M PRN (Reason: chest pain) Qty: 25 1RF Rx Instructions: do not exceed 3 doses per episode albuterol sulfate [Ventolin HFA] 90 mcg/actuation HFA aerosol inhaler 2 inh inhalation Q4H PRN (Reason: shortness of breath or wheezing) Qty: 6.7 0RF atorvastatin 20 mg tablet 20 mg PO BEDTIME metoprolol succinate 100 mg tablet extended release 24 hr 100 mg PO QAM Adult Low Dose Aspirin 81 mg tablet,delayed release (DR/EC) 81 mg PO QAM lisinopril 10 mg tablet 10 mg PO QAM Discharge Orders: Discharge ED (Routine); Ordered 08/14/22 Ordered By: Sharath Marks Referrals: Demetri Merritt MD [Primary Care Provider] - Discharge Diet: Regular Discharge Activity: Increase activity as tolerated Patient Instructions: Chest Pain (DC) Activity Restrictions/Additional Instructions: Follow-up with your PCP or piece goods clerk within the next week for reevaluation. Continue taking all home medications as previously prescribed. Return to the ER or your medical provider if condition worsens. Please read and understand discharge instructions. Thank you for choosing [facility] for your healthcare needs today. Please realize this is an emergency room and that we are providing you with a medical screening exam and this may not be complete and all inclusive of all the testing and or work up that you may need to determine your ailment or severity of your illness. It is very important that you follow up as instructed or that you return to the Emergency Department should you have concerns or if your condition changes or worsens in any way. Sign Out Sign Out Data: Patient Sign Out occurred on 08/14/22 at 17:10. Patient's care was discussed, and care was transferred from to PURNIMA Alberto. Coding Level of Care Code ED Lead Pourer for [place]
[2022-08-14] MEDS: nitroglycerin 0.4 mg sublingual Tablet SUBLINGUAL (15:27)
[2022-08-14 15:38] LABS: Basophils # 0.1 10^3/uL (0.0-0.1); Basophils % 0.6 %; Eosinophils # 0.1 10^3/uL (0.0-0.8); Eosinophils % 0.6 %; Hematocrit 49.5 % (42.0-52.0); Hemoglobin 17.1 g/dL (11.7-16.6); Lymphocytes # 1.8 10^3/uL (0.8-4.8); Lymphocytes % 13.9 %; Mean Corpuscular HGB Conc 34.5 g/dL (30.0-36.0); Mean Corpuscular Hemoglobin 31.7 pg (28.0-34.0); Mean Corpuscular Volume 91.7 fl (80-94); Mean Platelet Volume 10.1 fL (7.4-10.4); Monocytes # 1.2 10^3/uL (0.2-0.9); Monocytes % 9.1 %; Neutrophils # 9.56 10^3/uL (1.8-7.7); Neutrophils % 75.3 %; Nucleated Red Blood Cells % 0 %; Platelet Count 338 10^3/cmm (130-400); Red Cell Distribution Width 11.9 % (12.1-15.1); White Blood Count 12.7 10^3/uL (4.0-10.0)
[2022-08-14] MEDS: morphine 4 mg/mL SDV 1 mL IVP ×2 (15:43→18:31)
[2022-08-14] MEDS: ondansetron 2 mg/ML SDV 2 mL 4 MG IVP (15:43)
[2022-08-14 16:05] LABS: Alanine Aminotransferase 41 U/L (0-41); Albumin Level 4.8 g/dL (3.5-5.2); Alkaline Phosphatase 81 U/L (40-130); Anion Gap 15.6 (5-19); Aspartate Amino Transferase 22 U/L (0-40); Blood Urea Nitrogen 8 mg/dL (6-20); Carbon Dioxide 24 mmol/L (22-29); Chloride 98 mmol/L (98-107); Globulin 2.5 g/dL (1.3-4.6); Glomerular Filtration Rate 62.9 mL/min (90-130); Glucose 212 mg/dL (65-115); Osmolality Calculated 281 mOsm/kg (285-295); Potassium 4.6 mmol/L (3.5-5.1); Sodium 133 mmol/L (136-145); Total Bilirubin 0.8 mg/dL (0.15-1.2); Total Protein 7.3 g/dL (6.6-8.7)
[2022-08-14 16:12] LABS: Troponin(5th) Baseline 8 ng/L (0-15)
--- NOTE | 2022-08-14 16:52 | ECG_ITS ---
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 Measurements Intervals [place] Rate: 61 P: 51 NM: 210 QRS: -40 QRSD: 135 T: -3 QT: 401 QTc: 406 Interpretive Statements SINUS RHYTHM WITH FIRST DEGREE AV BLOCK LEFT AXIS DEVIATION [QRS AXIS < -30] INTRAVENTRICULAR CONDUCTION DELAY [130+ ms QRS DURATION] MODERATE VOLTAGE CRITERIA FOR LVH, CONSIDER NORMAL VARIANT [MEETS CRITERIA IN ONE OF: R(aVL), S(V1), R(V5), R(V5/V6)+S(V1)] Compared to ECG 08/14/2022 15:10:24 First degree AV block now present Electronically Signed On 08-15-2022 12:24:00 CDT by Yola Yanes M.D. [id number]
[2022-08-14 17:46] LABS: Troponin 5 2HR 9.29 ng/L (0-15)
[2022-08-14 17:56] LABS: Troponin 5 2HR Delta 1.29 ABS# (0-10)
== END 2022-08-14 18:39 | disposition home or self-care (01) ==
PROVIDERS: Physician Assistant; Emergency Provider Physician Assistant; PCP Family Medicine
DX: R07.9 Chest pain, unspecified (principal); Z79.82 Long term (current) use of aspirin; E11.9 Type 2 diabetes mellitus without complications; I10 Essential (primary) hypertension
CPT/HCPCS: 36415; 71045; 80053; 84484; 85025; 93005; 96374; 96375; 96376; 99285; J2270; J2405

== ENCOUNTER → 2022-10-03 12:05 | Outpatient (BNVA) | payer MEDICAID, SELFPAY | PROVIDERS: PCP Family Medicine; Visit Provider Internal Medicine Pulmonary Disease | DX: R06.02 Shortness of breath (principal) | CPT/HCPCS: 36415; 80053; 82785; 85025; 85651; 86003; 86140; 86160; 86162; 86200; 86235; 86255; 86376; 86431; 99204 ==

== ENCOUNTER 2022-10-17 08:58 | Outpatient (CLI) | payer MEDICAID, SELFPAY ==
--- NOTE | 2022-10-17 09:15 | FL_ITS ---
WS: [id number] Exam: [place] sniff test [id number] Date/Time of Exam: 10/17/2022 9:06 AM Reason For Exam: CHRONICALLY ELEVATED HEMIDIAPHRAGM Sniff test performed using fluoroscopic visualization of the chest. The diaphragms demonstrate normal motion during inspiration and expiration and also during sniff test . There was no sign of diaphragmatic paralysis. The RIGHT diaphragm shows some chronic elevation but shows normal motion during inspiration and expiration. RIGHT diaphragmatic elevation can be identifie d on imaging studies as far back as 04/01/[address] scan. IMPRESSION: 1. Normal diaphragmatic motion during inspiration and expiration. No paralysis identified.
== END 2022-10-17 08:59 | disposition home or self-care (01) ==
PROVIDERS: PCP Family Medicine; Visit Provider Internal Medicine Pulmonary Disease
DX: J98.6 Disorders of diaphragm (principal)
CPT/HCPCS: 76000

== ENCOUNTER → 2023-01-24 12:12 | Outpatient (BNVA) | payer MEDICAID, SELFPAY | PROVIDERS: PCP Family Medicine; Visit Provider Registered Nurse Neonatal Intensive Care | DX: J02.9 Acute pharyngitis, unspecified (principal); R50.9 Fever, unspecified | CPT/HCPCS: 87071; 87400; 87426; 87880 ==